=== PATIENT | female | born 1990 | race African-American/Black ===

== ENCOUNTER 2017-12-01 18:53 | Inpatient (IN) | payer OTHER ==
[~2017-12-01] VITALS: Ht 167.6 cm; Wt 59.0 kg
[2017-12-01 18:59] VITALS: BP 124/67
[2017-12-01 20:33] LABS: HEMATOCRIT 38.3 % (37.0-47.0); HEMOGLOBIN 12.2 gm/dL (12.0-15.0); MCH 27.2 pg (26.0-34.0); MCHC 31.9 g/dL (28.0-37.0); MCV 85.3 fL (80.0-100.0); PLATELET COUNT 355 thou/uL (150-400); RBC 4.49 mil/uL (4.20-5.00); RDW 15.5 % (10.5-14.5); WBC 24.5 thou/uL (4.0-11.0)
[2017-12-01 20:46] LABS: CALCIUM 9.8 mg/dL (8.5-10.1); CREATININE 1.2 mg/dL (0.6-1.0); POTASSIUM 4.4 mmol/L (3.5-5.1)
[2017-12-01 20:47] LABS: ALBUMIN 3.7 g/dL (3.4-5.0); DIRECT BILIRUBIN 0.2 mg/dL (<0.1-0.3); TOTAL BILIRUBIN 0.9 mg/dL (<0.1-1.0); TOTAL PROTEIN 7.9 g/dL (6.4-8.2)
[2017-12-01 20:57] LABS: POLYCHROMASIA SLIGHT
[2017-12-01 21:29] LABS: URINE BILIRUBIN NEGATIVE (Negative); URINE BLOOD TRACE (Negative); URINE CLARITY CLEAR; URINE COLOR YELLOW; URINE GLUCOSE-RANDOM* 3+ (Negative); URINE KETONES 3+ (Negative); URINE LEUKOCYTES-REFLEX NEGATIVE (Negative); URINE NITRITE-REFLEX NEGATIVE (Negative); URINE PROTEIN (DIPSTICK) NEGATIVE (Negative); URINE UROBILINOGEN 0.2 E.U./dl (0.2-1.0)
[2017-12-01 22:54] VITALS: BP 108/56
[2017-12-01 23:02] LABS: MAGNESIUM 1.9 mg/dL (1.8-2.4); PHOSPHORUS 4.7 mg/dL (2.5-4.9)
[2017-12-02] VITALS (16 sets, daily range): BP systolic 85–112; BP diastolic 47–76
[2017-12-02] MEDS ORDERED: HUMALOG MI100 UNIT/1 SUBQ (00:01)
[2017-12-02] MEDS ORDERED: LANTUS100 UNIT/M SUBQ (00:01)
[2017-12-02] MEDS ORDERED: PREDNISONE 10 M10 MG PO (00:02)
[2017-12-02 00:57] LABS: ALBUMIN 3.4 g/dL (3.4-5.0); CALCIUM 8.3 mg/dL (8.5-10.1); CREATININE 1.1 mg/dL (0.6-1.0); MAGNESIUM 1.8 mg/dL (1.8-2.4); PHOSPHORUS 2.8 mg/dL (2.5-4.9); POTASSIUM 3.8 mmol/L (3.5-5.1)
[2017-12-02 07:58] LABS: CALCIUM 7.9 mg/dL (8.5-10.1); CREATININE 0.9 mg/dL (0.6-1.0)
[2017-12-02 08:01] LABS: ALBUMIN 2.8 g/dL (3.4-5.0); MAGNESIUM 1.9 mg/dL (1.8-2.4); PHOSPHORUS 2.4 mg/dL (2.5-4.9)
[2017-12-03 03:56] LABS: ALBUMIN 2.7 g/dL (3.4-5.0); CALCIUM 7.9 mg/dL (8.5-10.1); CREATININE 0.8 mg/dL (0.6-1.0); PHOSPHORUS 2.3 mg/dL (2.5-4.9); POTASSIUM 3.4 mmol/L (3.5-5.1)
[2017-12-03 04:01] LABS: ABSOLUTE NEUTROPHILS 9.8 thou/uL (1.4-8.2); BASOPHILS 0.6 % (0.0-2.0); HEMOGLOBIN 11.3 gm/dL (12.0-15.0); LYMPHOCYTES 17.4 % (24.0-44.0); MCH 27.1 pg (26.0-34.0); MCHC 32.3 g/dL (28.0-37.0); MONOCYTES 5.8 % (1.0-8.0); PLATELET COUNT 281 thou/uL (150-400); POLYS 75.2 % (36.0-66.0); RBC 4.17 mil/uL (4.20-5.00); RDW 15.6 % (10.5-14.5)
[2017-12-03 08:00] VITALS: BP 121/83
[2017-12-03] MEDS ORDERED: LIDOCAINE VISC100 ML SW&SWALLOW (10:18)
[2017-12-03] MEDS ORDERED: CLEOCIN HCL150 MG PO (10:18)
[2017-12-03] MEDS ORDERED: CEPACOL SORE T1 EAC7 PO (10:18)
[2017-12-03] MEDS ORDERED: LANTUS100 UNIT/M SUBQ (10:19)
[2017-12-03] MEDS ORDERED: NOVOLOG100 UNIT/1 SUBQ (10:19)
[2017-12-03 11:22] VITALS: BP 121/83
== END 2017-12-03 14:02 | disposition home or self-care (01) | DRG 682 ==
LOC: ER 18:53 → EROBS 21:44 → ICU 21:44 → 4E 12-02 23:18
PROVIDERS: Emergency Medicine; Hospitalist; Nurse Practitioner Family
DX: N17.0 Acute kidney failure with tubular necrosis (principal); E10.10 Type 1 diabetes mellitus with ketoacidosis without coma; E86.0 Dehydration; F41.9 Anxiety disorder, unspecified; J03.90 Acute tonsillitis, unspecified
CPT/HCPCS: 10078; 10783

== ENCOUNTER 2018-02-08 17:53 | Emergency (ER) | payer OTHER ==
[~2018-02-08] VITALS: Ht 167.6 cm; Wt 60.3 kg
[~2018-02-08 17:53] MED LIST: CEPACOL SORE T1 EAC7 PO; CLEOCIN HCL150 MG PO; HUMALOG MI100 UNIT/1 SUBQ; LANTUS100 UNIT/M SUBQ; LIDOCAINE VISC100 ML SW&SWALLOW; NOVOLOG100 UNIT/1 SUBQ; PREDNISONE 10 M10 MG PO
[2018-02-08] MEDS ORDERED: LANTUS SUBQ (18:39)
[2018-02-08] MEDS ORDERED: HUMALOG100 UNIT/1 SUBQ (18:39)
[2018-02-08] MEDS ORDERED: CLONAZEPAM 0.50.5 M1 PO (18:40)
[2018-02-08 19:05] LABS: ABSOLUTE NEUTROPHILS 9.5 thou/uL (1.4-8.2); BASOPHILS 0.6 % (0.0-2.0); EOSINOPHILS 1.8 % (0.0-3.0); HEMATOCRIT 36.2 % (37.0-47.0); HEMOGLOBIN 11.9 gm/dL (12.0-15.0); LYMPHOCYTES 24.2 % (24.0-44.0); MCH 27.8 pg (26.0-34.0); MCHC 32.9 g/dL (28.0-37.0); MCV 84.6 fL (80.0-100.0); MONOCYTES 7.9 % (1.0-8.0); PLATELET COUNT 241 thou/uL (150-400); POLYS 65.5 % (36.0-66.0); RBC 4.28 mil/uL (4.20-5.00); RDW 14.7 % (10.5-14.5); WBC 14.5 thou/uL (4.0-11.0)
[2018-02-08 19:11] LABS: CALCIUM 9.9 mg/dL (8.5-10.1); CREATININE 0.7 mg/dL (0.6-1.0); POTASSIUM 3.2 mmol/L (3.5-5.1)
[2018-02-08] MEDS ORDERED: MOBIC15 MG PO (20:21)
[2018-02-08] MEDS ORDERED: PRILOSEC OTC20 MG PO (20:25)
[2018-02-08 20:37] VITALS: BP 122/97
== END 2018-02-08 20:39 | disposition home or self-care (01) ==
LOC: ER 17:53
PROVIDERS: Emergency Medicine
DX: S29.012A Strain of muscle and tendon of back wall of thorax, initial encounter (principal); L52 Erythema nodosum; E10.10 Type 1 diabetes mellitus with ketoacidosis without coma; F41.9 Anxiety disorder, unspecified; Z87.891 Personal history of nicotine dependence; X58.XXXA Exposure to other specified factors, initial encounter; Y92.89 Other specified places as the place of occurrence of the external cause; Y93.89 Activity, other specified; Y99.8 Other external cause status